=== PATIENT | female | born 1960 | race Caucasian/White ===

== ENCOUNTER 2016-05-24 08:13 | Day surgery (SDC) | payer MEDICARE ==
[~2016-05-24] VITALS: Ht 167.6 cm; Wt 85.0 kg
[~2016-05-24 08:13] MED LIST: 0.9% Sodium Chloride 1,000 ML IV PRN; ALBU8.5H2 INHALATION; ASCO100089 PO; ASPI325T32 PO; BECL8.7A6 INHALATION; CHOL5000 PO; CYAN500 PO; MULT1CAP33 PO; NITR0.4T SL; PANT40TA3 PO; RES15 PO; Sodium Chloride LOK Flush 10 mL Syringe IV PRN; fentaNYL-PF 50 mCg/mL 2 mL Inj IVPUSH PRN
[2016-05-24 09:42] VITALS: BP 137/82; PULSE 69; RESP 16; O2SAT 96
--- NOTE | 2016-05-24 10:51 | PCM.ENDEGD ---
EGD Date of Service: May 24, 2016 Physician Jose D Holbrook MD Pre Procedure Diagnosis: Abdominal pain and diarrhea Post Procedure Dx & Findings: Healing esophageal ulcer gastritis duodenal nodule Procedure Esophagogastroduodenoscopy After proper sedation, Olympus video endoscope was inserted into patient's mouth and esophagus was successfully intubated. Scope introduced esophagus. Esophagus showed normal shiny whitish mucosa consistent with squamous cell component. Z line was intact at 38 cm from the incisors. There were a few 1 cm healing esophageal ulcer. Biopsies obtained. Scope advanced into the stomach. Stomach showed blunted rugae folds and bumpy mucosa without any ulcer mass erosion. Anatomy consistent with gastric sleeve surgery. Antrum also showed redness and edema consistent with gastritis. Biopsies obtained from the antrum and proximal stomach. Retroflexion was done. Stomach was easily inflated and deflatable using air. Scope further events to the distal duodenum. Duodenum revealed normal villous structures with normal appearing folds without any mass ulcer erosion. Random biopsy obtained for workup of celiac disease. 5 biopsies obtained. In the duodenal bulb, there was a 5 mm nodular mucosa. 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 Impression Esophageal ulcer status post biopsy. 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 Presedation Assessment Risks and Benefits Informed consent was obtained from the patient after all risks and benefits including but not limited to drug reaction, infection, pain, bleeding, perforation, as well as alternatives were discussed. Patient monitoring Continuous pulse oximetry, cardiac monitoring, blood pressure monitoring, IV access, and oxygen at 2L per nasal cannula. Periprocedural Fentanyl: Fentanyl 75mcg Incrementally Midazolam: Midazolam 4mg Incrementally Complications There were no periprocedural complications identified. Post Procedure Plan Post Procedure Recommendations 1. Restrict activities today. 2. Resume normal activities in the morning. 3. Resume medications. 4. GERD behavioral modification: - Avoid fatty, acidic, spicy, large meals - Do not lie down after meals - Do not eat or drink anything for at least 2 1/2 hours before going to bed at night - Discontinue tobacco and alcohol - Decrease or avoid caffeine - Avoid chocolate and mints - Decrease weight - Avoid aspirin and non steroidal anti-inflammatory agents (NSAID) such as Aleve, Advil, Mobic, Naproxen, Ibuprofen, etc 5. Add proton pump inhibitor. Take 30 minutes before 1st meal of the day. 6. Patient informed of normal post procedure side effects as bloating, drowsiness, blood streaking in the stool 7. If gastric biopsy reveal H.pylori, continue with appropriate treatment 8. If small bowel biopsy reveals celiac, continue with appropriate treatment 9. Please don't hesitate to call me with any questions Jose D Holbrook MD May 24, 2016 10:51
--- NOTE | 2016-05-24 11:12 | PCM.ENDCOL ---
Colonoscopy Date of Service: May 24, 2016 Physician Jose D Holbrook MD Pre Procedure Diagnosis: Diarrhea Post Procedure Dx & Findings: Hemorrhoids diverticuli Procedure Colonoscopy Prep fair Withdrawal time 11 minutes After unremarkable rectal examination the Olympus video colonoscope was inserted patient's anal canal and was advanced to cecum. Landmarks were identified including the ileocecal valve and appendiceal orifice. Scope was withdrawn systematically. Visualized colonic mucosa showed healthy shiny mucosa with normal healthy-appearing vasculature. We advanced 8 cm into the terminal ileum which showed normal villous structures without any ulcer or mass erosion. Patient had small diverticuli in the sigmoid and to some extent in the descending colon. Random biopsy obtained from the cecum to the rectum to diarrhea. In the rectum retroflexion was done which showed hemorrhoids. Anal canal was inspected carefully on the way out and hemorrhoids noted. Impression Fair prep Diverticuli Hemorrhoids Diarrhea Recommendation Repeat colonoscopy based on last colonoscopy's recommendation 5 years ago. According to the patient, she said she was asked to repeat colonoscopy in 10 years. This colonoscopy was for workup of diarrhea. Diverticular diet. Presedation Assessment Risks and Benefits Informed consent was obtained from the patient after all risks and benefits including but not limited to drug reaction, infection, pain, bleeding, perforation, as well as alternatives were discussed. Patient monitoring Continuous pulse oximetry, cardiac monitoring, blood pressure monitoring, IV access, and oxygen at 2L per nasal cannula. Periprocedural Fentanyl: Fentanyl 25mcg Midazolam: Midazolam 1mg Incrementally Complications There were no periprocedural complications identified. Post Procedure Plan Post Procedure Recommendations 1. Restrict activities today. 2. Resume normal activities in the morning. 3. Resume medications. 4. Patient informed of normal post procedure side effects as bloating, drowsiness, blood streaking in the stool. 5. average risk CRCS. If colon polyps come back as: -Hyperplastic- can repeat colonoscopy in 10 years -Tubular adenoma- repeat colonoscopy in 5 years -Tubulovillous/villous adenoma- repeat colonoscopy in 3 years -If any dysplasia- return to clinic as soon as possible 6. Please don't hesitate to call me with any questions. Jose D Holbrook MD May 24, 2016 11:12
[2016-05-24 11:13] VITALS: BP 133/69; PULSE 66; O2SAT 96
[2016-05-24 11:26] VITALS: BP 142/74; PULSE 67; O2SAT 92
[2016-05-24 11:43] VITALS: BP 139/85; PULSE 63; O2SAT 97
--- NOTE | 2016-05-25 12:59 | PATH ---
SURGICAL PATHOLOGY Attending Physician:Jose D Holbrook M.D. CASE STATUS: Signed Out PATIENT NAME: FELICIA TERRAZAS PID: [id number] : 1960 DATE COLLECTED:05/24/2016 17:35 SPECIMEN: 1: Duodenum, Biopsy 2: Duodenum, Biopsy 3: Gastric, Biopsy 4: Esophagus, Biopsy 5: Colon, Biopsy CLINICAL HISTORY: 1). DUODENUM BIOPSY 2). DUODENUM NODULE BIOPSY 3). GASTRIC BIOPSY 4). ESOPHAGEAL ULCER BIOPSY 5). RANDOM COLON BIOPSY FINAL DIAGNOSIS: 1.DUODENUM, BIOPSY: NO DIAGNOSTIC ABNORMALITY. Negative for intraepithelial lymphocytosis, villous blunting, or other features of celiac sprue. Negative for Giardia organisms, dysplasia and malignancy. 2.DUODENAL NODULE, BIOPSY: TINY FRAGMENT OF OXYNTIC GASTRIC MUCOSA. No evidence of malignancy or dysplasia. 3.GASTRIC BIOPSY: GASTRIC CORPUS WITH MILD CHRONIC GASTRITIS. Negative for Helicobacter organisms. Negative for intestinal metaplasia. No evidence of dysplasia or malignancy. 4.ESOPHAGEAL ULCER, BIOPSY: THICKENED ESOPHAGEAL SQUAMOUS EPITHELIUM WITH MILD CHRONIC ACTIVE INFLAMMATION. No evidence of malignancy or dysplasia. Negative for eosinophilic esophagitis. Negative for intestinal metaplasia. 5.COLON, RANDOM BIOPSIES: NORMAL COLONIC MUCOSA. No significant inflammation identified. No evidence of dysplasia or malignancy. ICD10 code K29.70 K20.9 GROSS DESCRIPTION: The specimen is received in five formalin filled containers labeled with the patient's name. 1). The specimen is sublabeled "duodenum" and consists of 2 portions of tissue which aggregate to 0.3 x 0.3 x 0.2 CM. The specimen is entirely submitted in cassette 1A. 2). The specimen is sublabeled "duodenum nodule" and consists of an extremely tiny less than 0.1 CM portion of tissue which is entirely submitted in cassette 2A. 3). The specimen is sublabeled "gastric" and consists of 2 portions of tissue which aggregate to 0.4 x 0.4 x 0.3 CM. The specimen is entirely submitted in cassette 3A. 4). The specimen is sublabeled "esophageal ulcer" and consists of a 0.4 x 0.3 x 0.2 CM portion of tissue which is entirely submitted in cassette 4A. 5). The specimen is sublabeled "random colon" and consists of multiple portions of tissue which aggregate to 0.6 x 0.3 x 0.2 CM. The specimen is entirely submitted in cassette 5A. 05/24/2016 [facility] MICRO DESCRIPTION: See diagnosis. ICD-9 CODES: CPT CODES: 1: 16546 2: 01137 3: 16456 4: 69096 5: 97026 Electronically Signed Out Gerardo Franco MD [facility] Pathology [facility], [place] [address] Technical component performed at [facility], [facility] [address], [place], [address]
== END 2016-05-24 23:59 | disposition home or self-care (01) ==
LOC: END 08:13
PROVIDERS: ATTEND Internal Medicine
DX: R19.7 Diarrhea, unspecified (principal); K57.30 Diverticulosis of large intestine without perforation or abscess without bleeding; K64.8 Other hemorrhoids; K29.50 Unspecified chronic gastritis without bleeding; K22.10 Ulcer of esophagus without bleeding; K21.9 Gastro-esophageal reflux disease without esophagitis; Z98.84 Bariatric surgery status; J44.9 Chronic obstructive pulmonary disease, unspecified; M79.7 Fibromyalgia; E55.9 Vitamin D deficiency, unspecified; M19.049 Primary osteoarthritis, unspecified hand; M50.30 Other cervical disc degeneration, unspecified cervical region; Z79.51 Long term (current) use of inhaled steroids; Z79.82 Long term (current) use of aspirin
CPT/HCPCS: 43239; 45380; 88305; 99153; G0500; J2250; J3010; J7030